=== PATIENT | female | born 1955 | race Caucasian/White ===

== ENCOUNTER 2017-12-20 11:48 | Emergency (ER) | payer BC ==
--- OUTSIDE RECORDS SUMMARY | 2017-12-20 11:57 | XMS REPORT ---
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 Stim Horm) 2.01 mcIU/mL 0.34-5.60 Phosphorus 4.2 mg/dL 2.5-5.0 Comp Metabolic Panel 08/20/2016 Sodium 138 mmol/L 133-145 Potassium 4.4 mmol/L 3.5-5.0 Chloride 105 mmol/L 101-111 Co2 Carbon Dioxide 27 mmol/L 22-32 Anion Gap 6 mmol/L 2-11 Glucose 89 mg/dL 70-100 Blood Urea Nitrogen 21 mg/dL 6-24 Creatinine 0.89 mg/dL 0.51-0.95 BUN/Creatinine Ratio 23.6 High 8-20 Calcium 9.4 mg/dL 8.6-10.3 Total Protein 6.1 g/dL Low 6.4-8.9 Albumin 4.1 g/dL 3.2-5.2 Globulin 2.0 g/dL 2-4 Albumin/Globulin Ratio 2.1 1-3 Total Bilirubin 0.40 mg/dL 0.2-1.0 Alkaline Phosphatase 69 U/L 34-104 Alt 20 U/L 7-52 Ast 15 U/L 13-39 Egfr Non- 65.1 >60 Egfr 83.8 >60 20 Laboratory test 05/22/2016 Surgical Interface SEE RESULT BELOW 21 finding Order Laboratory test 05/11/2016 Rapid Strep Negative Negative 22 finding Molecular CBC Auto Diff 11/15/2015 White Blood Count 5.1 10^3/uL 3.5-10.8 Red Blood Count 4.58 10^6/uL 4.0-5.4 Hemoglobin 13.8 g/dL 12.0-16.0 Hematocrit 43 % 35-47 Mean Corpuscular Volume 93 fL 80-97 Mean Corpuscular Hemoglobin 30 pg 27-31 Mean Corpuscular HGB Conc 33 g/dL 31-36 Red Cell Distribution Width 13 % 10.5-15 Platelet Count 212 10^3/uL 150-450 Mean Platelet Volume 10 um3 7.4-10.4 Abs Neutrophils 2.7 10^3/uL 1.5-7.7 Abs Lymphocytes 1.8 10^3/uL 1.0-4.8 Abs Monocytes 0.4 10^3/uL 0-0.8 Abs Eosinophils 0.2 10^3/uL 0-0.6 Abs Basophils 0 10^3/uL 0-0.2 Abs Nucleated RBC 0 10^3/uL Granulocyte % 53.3 % 38-83 Lymphocyte % 35.5 % 25-47 Monocyte % 6.9 % 1-9 Eosinophil % 3.9 % 0-6 Basophil % 0.4 % 0-2 Nucleated Red Blood Cells % 0 CBC Auto Diff 01/18/2015 White Blood Count 4.7 10^3/uL Low 4.8-10.8 Red Blood Count 4.43 10^6/uL 4.0-5.4 Hemoglobin 13.9 g/dL 12.0-16.0 Hematocrit 42 % 35-47 Mean Corpuscular Volume 94 fL 80-97 Mean Corpuscular Hemoglobin 32 pg High 27-31 Mean Corpuscular HGB Conc 34 g/dL 31-36 Red Cell Distribution Width 13 % 10.5-15 Platelet Count 188 10^3/uL 150-450 Mean Platelet Volume 11 um3 High 7.4-10.4 Abs Neutrophils 2.4 10^3/uL 1.5-7.7 Abs Lymphocytes 1.7 10^3/uL 1.0-4.8 Abs Monocytes 0.3 10^3/uL 0-0.8 Abs Eosinophils 0.2 10^3/uL 0-0.6 Abs Basophils 0 10^3/uL 0-0.2 Abs Nucleated RBC 0 10^3/uL Granulocyte % 52.0 % 38-83 Lymphocyte % 36.5 % 25-47 Monocyte % 7.3 % 1-9 Eosinophil % 3.6 % 0-6 Basophil % 0.6 % 0-2 Nucleated Red Blood Cells % 0 Comp Metabolic Panel 01/18/2015 Sodium 140 mmol/L 133-145 Potassium 4.1 mmol/L 3.5-5.0 Chloride 105 mmol/L 101-111 Co2 Carbon Dioxide 28 mmol/L 22-32 Anion Gap 7 mmol/L 2-11 Glucose 85 mg/dL 70-100 Blood Urea Nitrogen 17 mg/dL 6-24 Creatinine 0.92 mg/dL 0.51-0.95 BUN/Creatinine Ratio 18.5 8-20 Calcium 9.1 mg/dL 8.6-10.3 Total Protein 5.8 g/dL Low 6.4-8.9 Albumin 4.0 g/dL 3.2-5.2 Globulin 1.8 g/dL Low 2-4 Albumin/Globulin Ratio 2.2 1-3 Total Bilirubin 0.50 mg/dL 0.2-1.0 Alkaline Phosphatase 54 U/L 34-104 Alt 16 U/L 7-52 Ast 17 U/L 13-39 Egfr Non- 62.9 >60 Egfr 80.9 >60 23 Lipid Profile (Trig/Chol/HDL) 01/18/2015 Triglycerides 75 mg/dL 24 Cholesterol 172 mg/dL 25 HDL Cholesterol 54.7 mg/dL 26 LDL Cholesterol 102 mg/dL 27 Laboratory test finding 01/18/2015 TSH (Thyroid Stim Horm) 2.05 ?IU/mL 0.34-5.60 Free T4 (Free Thyroxine) 1.02 ng/mL 0.61-1.12 Vitamin D Total 25(Oh) 42.5 ng/mL 30-50 Surgical Pathology 02/02/2014 S RUN DATE: 02/06/ <SEE 28 NOTE> Calcium 24HR Urine 12/30/2013 Urine Random Calcium 17.6 mg/dL Urine Calcium/24HR 299.2 mg/24Hr 50-400 Urine Collection Time 24 Urine Total Volume 1700 mL Protein Electrophoresis 12/30/2013 Total Protein(Pep) 6.2 g/dL 6.3 - 7.9 Albumin 3.2 g/dL 3.4-4.7 Alpha-1 Globulin 0.2 g/dL 0.1-0.3 Alpha-2 Globulin 1.1 g/dL 0.6-1.0 Beta Globulin 0.8 g/dL 0.7-1.2 Gamma Globulin 0.9 g/dL 0.6-1.6 Albumin/Globulin Ratio 1.09 Impression See Comment 29 Phosphorus 24HR Urine 12/30/2013 Urine Random Phosphorus 28.1 mg/dL Urine Phosporus/24HR 477.7 mg/24Hr 400-1300 Laboratory test finding 12/30/2013 Erythrocyte Sed Rate 9 mm/Hr 0-30 Comp Metabolic Panel 12/30/2013 Sodium 142 mmol/L 133-145 Potassium 4.4 mmol/L 3.7-5.6 Chloride 106 mmol/L 101-111 Co2 Carbon Dioxide 24 mmol/L 22-32 Anion Gap 12 mmol/L High 2-11 Glucose 137 mg/dL High 70-100 Blood Urea Nitrogen 15 mg/dL 6-24 Creatinine 0.89 mg/dL 0.51-0.95 BUN/Creatinine Ratio 16.9 8-20 Calcium 8.9 mg/dL 8.6-10.3 Total Protein 6.0 g/dL Low 6.4-8.9 Albumin 4.1 g/dL 3.2-5.2 Globulin 1.9 g/dL Low 2-4 Albumin/Globulin Ratio 2.2 1-3 Total Bilirubin 0.50 mg/dL 0.2-1.0 Alkaline Phosphatase 73 U/L 34-104 Alt 28 U/L 7-52 Ast 21 U/L 13-39 Egfr Non- 65.6 >60 Egfr 84.4 >60 30 Laboratory test finding 12/30/2013 Free T4 0.93 ng/mL 0.61-1.12 31 TSH (Thyroid Stimulating Horm) 1.92 IU/mL 0.34-5.60 32 Cortisol 6.57 g/dL 33 C Reactive Protein < 1.00 mg/L < 5.00 34 Vitamin D, 25 Hydroxy 12/30/2013 25-Hydroxy Vitamin D2 <4.0 ng/mL 25-Hydroxy Vitamin D3 62 ng/mL 25-Hydroxy Vitamin D Total 62 ng/mL 35 Hla B27 12/30/2013 Hla B27 Negative 36 Hla B27 Interp See Comment 37 Laboratory test finding 11/24/2013 Hepatitis C Antibody Nonreactive Nonreactive CBC Auto Diff 06/30/2013 White Blood Count 5.8 10^3/uL 4.8-10.8 Red Blood Count 4.19 10^6/uL 4.0-5.4 Hemoglobin 13.1 g/dL 12.0-16.0 Hematocrit 39 % 35-47 Mean Corpuscular Volume 94 fL 80-97 Mean Corpuscular Hemoglobin 31 pg 27-31 Mean Corpuscular HGB Conc 33 g/dL 31-36 Red Cell Distribution Width 13 % 10.5-15 Platelet Count 217 10^3/uL 150-450 Mean Platelet Volume 10 um3 7.4-10.4 Abs Neutrophils 3.1 10^3/uL 1.5-7.7 Abs Lymphocytes 1.7 10^3/uL 1.0-4.8 Abs Monocytes 0.4 10^3/uL 0-0.8 Abs Eosinophils 0.5 10^3/uL 0-0.6 Abs Basophils 0 10^3/uL 0-0.2 Abs Nucleated RBC 0 10^3/uL Granulocyte % 53.9 % 38-83 Lymphocyte % 29.6 % 25-47 Monocyte % 7.2 % 1-9 Eosinophil % 8.7 % High 0-6 Basophil % 0.6 % 0-2 Nucleated Red Blood Cells % 0 Laboratory test 04/14/2012 Surgical 38, 39 finding Pathology <SEE NOTE> Laboratory test 09/24/2011 Phosphorus 3.8 mg/dL 2.4-4.7 40 finding TSH 1.52 MIU/ML 0.34-5.60 40 Vitamin D,25 Hydroxy 09/24/2011 25-Hydroxy Vitamin D2 <4.0 ng/mL () 40 25-Hydroxy Vitamin D3 40 ng/mL () 40 25-Hydroxy Vitamin D Total 40 ng/mL () 40, 41 CBC W/ Electronic Diff 09/24/2011 White Blood Count 4.3 CUMM Low 4.8-10.8 40 Red Cell Count 4.21 CUMM 4.2-5.4 40 Hemoglobin 13.2 g/dL 12.0-16.0 40 Hematocrit 38 % 35-47 40 Mean Corpuscular Volume 91 um3 79-97 40 Mean Corpuscular Hemoglob 32 pg High 27-31 40 Mean Corpuscular HGB Cone 35 g/dL 32-36 40 Redcell Distribution WDTH 13 % 10.5-15 40 Platelet Count 174 CUMM 150-450 40 Mean Platelet Volume 10.9 um3 High 7.4-10.4 40 Gran % 53.9 % 38-83 40 Lymph % 34.8 % 25-47 40 Mononuclear % 6.8 % 1-9 40 Eosinophil % 3.9 % 0-6 40 Basophil % 0.6 % 0-2 40 Abs Lymphs 1.5 1.0-4.8 40 Abs Mononuclear 0.3 0-0.8 40 Absolute Neutrophil Count 2.3 1.5-7.7 40 Abs Eosinophils 0.2 0-0.6 40 Abs Basophils 0 0-0.2 40 Lipid Panel 09/24/2011 Triglyceride 112 mg/dL 40-200 40 Cholesterol 212 mg/dL High Less Than 200 40, 42 High Density Lipoprotein 64 mg/dL High 40-60 40, 43 Cholesterol/HDL Ratio 3.31 AVERAGE 1-4.44 40 Low Density Lipoprotein 126 mg/dL High Less Than 100 40, 44 CMP Panel 09/24/2011 Sodium 138 mmol/L 135-145 40 Potassium 4.4 mmol/L 3.5-5.0 40 Chloride 102 mmol/L 101-111 40 Co2 (Carbon Dioxide) 30.0 mmol/L 22-32 40 Anion Gap 6.0 mmol/L 2-11 40, 45 Glucose 83 mg/dL 70-100 40 BUN 13 mg/dL 6-24 40 Creatinine 0.9 mg/dL 0.50-1.40 40 One Over Creatinine 1.11 40 BUN/Creatinine Ratio 14.4 8-20 40 Calcium 9.1 mg/dL 8.1-9.9 40 Total Protein 5.9 GM/DL Low 6.2-8.1 40 Albumin 3.9 GM/DL 3.6-5.4 40 Globulin 2.0 GM/DL 2-4 40 Albumin/Globulin Ratio 2.0 1-3 40 Bilirubin Total 0.8 mg/dL 0.4-1.5 40, 46 Alkaline Phosphatase 77 U/L 30-110 40 Alt (SGPT) 27 U/L 14-54 40 Ast (Sgot) 23 U/L 12-42 40 eGFR Non- 65.2 > 60 40 eGFR 83.9 > 60 40, 47 CBC With Electronic Diff 11/29/2007 White Blood Count 4.7 CUMM Low 4.8- 10.8 Abs Basophils 0 0-0.2 Abs Eosinophils 0.2 0-0.6 Absolute Neutrophil Count 2.6 1.5-7.7 Abs Lymphs 1.5 1.0-4.8 Abs Mononuclear 0.3 0-0.8 Basophil % 0.6 % 0-2 Hematocrit 37 % 35-47 Hemoglobin 13.1 g/dL 12.0-16.0 Eosinophil % 4.8 % 0-6 Gran % 55.6 % 38-83 Lymph % 32.4 % 20-45 Mean Corpuscular HGB Cone 35 g/dL 32-36 Mean Corpuscular Hemoglob 32 pg High 27-31 Mean Corpuscular Volume 90 um3 79-97 Mean Platelet Volume 10.6 um3 High 7.4-10.4 Mononuclear % 6.6 % 1-9 Platelet Count 196 CUMM 150-450 Red Cell Count 4.17 CUMM Low 4.2-5.4 Redcell Distribution WDTH 12 % 10.5-15 Liver Function Panel 11/29/2007 Albumin/Globulin Ratio 1.6 1-3 Albumin 3.7 GM/DL 3.6-5.4 Alkaline Phosphatase 56 U/L 30-110 Alt (SGPT) 49 U/L 14-54 Ast (Sgot) 27 U/L 12-42 Bilirubin Direct 0.1 mg/dL 0.1-0.5 Globulin 2.3 GM/DL 2-4 Indirect Bilirubin 0.5 mg/dL 0.1-0.75 Bilirubin Total 0.6 mg/dL 0.4-1.5 Total Protein 6.0 GM/DL Low 6.2-8.1 Laboratory test 10/07/2007 Carbamazepine 4.5 g/mL 4-12 48 finding (Tegretol) Laboratory test 06/20/2007 C Reactive Protein < 0.5 mg/dL Less Than 0.5 finding CBC With Electronic 06/20/2007 White Blood Count 7.1 CUMM 4.8-10.8 Diff Abs Basophils 0 0-0.2 Abs Eosinophils 0.4 0-0.6 Absolute Neutrophil Count 4.1 1.5-7.7 Abs Lymphs 2.1 1.0-4.8 Abs Mononuclear 0.4 0-0.8 Basophil % 0.7 % 0-2 Hematocrit 41 % 35-47 Hemoglobin 13.9 g/dL 12.0-16.0 Eosinophil % 6.0 % 0-6 Gran % 57.8 % 38-83 Lymph % 29.5 % 20-45 Mean Corpuscular HGB Cone 34 g/dL 32-36 Mean Corpuscular Hemoglob 31 pg 27-31 Mean Corpuscular Volume 91 um3 79-97 Mean Platelet Volume 11.1 um3 High 7.4-10.4 Mononuclear % 6.0 % 1-9 Platelet Count 238 CUMM 150-450 Red Cell Count 4.46 CUMM 4.2-5.4 Redcell Distribution WDTH 13 % 10.5-15 Laboratory test finding 06/20/2007 Erythrocyte Sed Rate 1 MM/HR 0-15 Urinalysis 06/20/2007 Ua Color YELLOW Appearance-Urine CLEAR Bilirubin-Ur NEGATIVE Negative Blood-Urine NEGATIVE Negative Esterase-Urine NEGATIVE Negative Glucose-Urine NEGATIVE Negative Ketones-Urine NEGATIVE Negative Nitrite NEGATIVE Negative PH-Urine 5.0 5-9 Protein-Urine NEGATIVE Negative [id number] NEGATIVE Negative Specific Nelson-Ur 1.007 Low 1.010-1.030 Laboratory test finding 06/20/2007 Antinuclear AB NEGATIVE Negative Neutrophil Cytoplasmic AB 06/20/2007 C-Anca NEGATIVE P-Anca Final RPT NEGATIVE Ssa/SSB 06/20/2007 Ssa NEGATIVE Negative SSB NEGATIVE Negative CBC With Manual Diff 06/06/2007 White Blood Count 5.6 CUMM 4.8-10.8 Absolute Neutrophil Count 3.1 Atypical Lymph 8 % High 0-6 Anisocytosis SLIGHT Basophil 2 % 0-2 Hematocrit 41 % 35-47 Hemoglobin 13.7 g/dL 12.0-16.0 Eosenophil 7 % High 0-6 Lymphocyte 20 % 5-47 Mean Corpuscular HGB Cone 34 g/dL 32-36 Mean Corpuscular Hemoglob 31 pg 27-31 Mean Corpuscular Volume 92 um3 79-97 Monocyte 6 % 0-13 Mean Platelet Volume 11.1 um3 High 7.4-10.4 Platelet Count 234 CUMM 150-450 Polychromasia SLIGHT Polysegmented Neutrophil 57 % 38-83 Red Cell Count 4.44 CUMM 4.2-5.4 Redcell Distribution WDTH 13 % 10.5-15 Laboratory test finding 04/21/2006 Tahirnader Ramos RECEIVED 49, 50 Laboratory test finding 12/21/2005 Erythrocyte Sed Rate 1 MM/HR 0-15 51 Rheumatoid Factor < 20.0 IU/mL Less Than 20 51 Mervat (Antinuclear Antibodies) 12/21/2005 Antinuclear AB 1:80 51 Antinuclear AB POSITIVE Negative 51 Mervat Pattern HOMOGENEOUS 51 Comp Metabolic Panel 12/21/2005 One Over Creatinine 1.11 51 Anion Gap 8.0 mmol/L 2-11 51, 52 Albumin/Globulin Ratio 1.5 1-3 51 Albumin 3.7 GM/DL 3.6-5.4 51 Alkaline Phosphatase 44 U/L 30-110 51 Alt (SGPT) 29 U/L 14-54 51 Ast (Sgot) 23 U/L 12-42 51 BUN 12 mg/dL 6-24 51 Calcium 9.0 mg/dL 8.7-10.2 51 Chloride 107 mmol/L 101-111 51 Co2 (Carbon Dioxide) 25.0 mmol/L 22-32 51 Globulin 2.4 GM/DL 2-4 51 Glucose 83 mg/dL 70-105 51 Potassium 4.6 mmol/L 3.5-5.0 51 Sodium 140 mmol/L 135-145 51 Bilirubin Total 0.8 mg/dL 0.4-1.5 51 Total Protein 6.1 GM/DL Low 6.2-8.1 51 BUN/Creatinine Ratio 13.3 8-20 51 Creatinine 0.9 mg/dL 0.5-1.4 51 CBC With Electronic Diff 12/21/2005 White Blood Count 6.3 CUMM 4.8-10.8 51 Abs Basophils 0 0-0.2 51 Abs Eosinophils 0.3 0-0.6 51 Absolute Neutrophil Count 3.6 1.5-7.7 51 Abs Lymphs 1.9 1.0-4.8 51 Abs Mononuclear 0.5 0-0.8 51 Basophil % 0.6 % 0-2 51 Hematocrit 42 % 35-47 51 Hemoglobin 14.4 g/dL 12.0-16.0 51 Eosinophil % 4.2 % 0-6 51 Gran % 57.3 % 38-83 51 Lymph % 30.5 % 20-45 51 Mean Corpuscular HGB Cone 35 g/dL 32-36 51 Mean Corpuscular Hemoglob 30 pg 27-31 51 Mean Corpuscular Volume 88 um3 79-97 51 Mean Platelet Volume 11.3 um3 High 7.4-10.4 51 Mononuclear % 7.4 % 1-9 51 Platelet Count 247 CUMM 150-450 51 Red Cell Count 4.77 CUMM 4.2-5.4 51 Redcell Distribution WDTH 13 % 10.5-15 51 Ua Inhouse 09/12/2004 Ua Glucose NEG Ua Bilirubin NEG Ua Ketones NEG Ua Specific Nelson 1.010 Ua Blood NEG Ua PH 5.0 Ua Protein NEG Ua Urobilinogen NEG Ua Nitrite NEG Ua Leukocytes NEG CBC With Electronic Diff 07/11/2004 White Blood Count 4.9 CUMM 4.8-10.8 Abs Basophils 0 0-0.2 Abs Eosinophils 0.2 0-0.6 Abs Grans 2.5 1.5-7.7 Abs Lymphs 1.8 1.0-4.8 Abs Mononuclear 0.4 0-0.8 Basophil % 0.8 % 0-2 Hematocrit 39 % 35-47 Hemoglobin 13.4 g/dL 12.0-16.0 Eosinophil % 5.0 % 0-6 Gran % 50.7 % 38-83 Lymph % 36.3 % 20-45 Mean Corpuscular HGB Cone 34 g/dL 32-36 Mean Corpuscular Hemoglob 31 pg 27-31 Mean Corpuscular Volume 92 um3 79-97 Mean Platelet Volume 10.7 um3 High 7.4-10.4 Mononuclear % 7.2 % 1-9 Platelet Count 203 CUMM 150-450 Red Cell Count 4.26 CUMM 4.2-5.4 Redcell Distribution WDTH 12 % 10.5-15 Comp Metabolic Panel 07/11/2004 Anion Gap 3.0 mmol/L 2-11 53 Albumin/Globulin Ratio 1.6 1-3 Albumin 3.4 GM/DL Low 3.6-5.4 Alkaline Phosphatase 60 U/L 30-110 Alt (SGPT) 36 U/L 14-54 Ast (Sgot) 27 U/L 12-42 BUN 11 mg/dL 6-24 Calcium 9.0 mg/dL 8.7-10.2 Chloride 108 mmol/L 101-111 Co2 (Carbon Dioxide) 28.0 mmol/L 22-32 Creatinine 0.9 mg/dL 0.5-1.4 Globulin 2.1 GM/DL 2-4 Glucose 85 mg/dL 70-105 Potassium 4.6 mmol/L 3.5-5.0 Sodium 139 mmol/L 135-145 Bilirubin Total 0.6 mg/dL 0.4-1.5 Total Protein 5.5 GM/DL Low 6.2-8.1 BUN/Creatinine Ratio 12.2 8-20 Laboratory test finding 07/11/2004 TSH 1.44 MIU/ML 0.34-5.60 Lipid Profile (Trig/Chol/HDL) 07/11/2004 Cholesterol 194 mg/dL Less Than 200 54 Triglyceride 77 mg/dL 40-200 High Density Lipoprotein 52 mg/dL 40-60 Low Density Lipoprotein 127 mg/dL High Less Than 100 55 Cholesterol/HDL Ratio 3.73 AVERAGE 1-4.44 1 Because ethnic data is not always readily available, this report includes an eGFR for both -Americans and non- Americans. The National Kidney Disease Education Program (NKDEP) does not endorse the use of the MDRD equation for patients that are not between the ages of 18 and 70, are , have extremes of body size, muscle mass, or nutritional status, or are non- or non-. According to the National Kidney Foundation, irrespective of diagnosis, the stage of the disease is based on the level of kidney function: Stage Description GFR(mL/min/1.73 m(2)) 1 Kidney damage with normal or decreased GFR 90 2 Kidney damage with mild decrease in GFR 60-89 3 Moderate decrease in GFR 30-59 4 Severe decrease in GFR 15-29 5 Kidney failure <15 (or dialysis) 2 REFERENCE VALUE <=1.0 (Negative) 3 REFERENCE VALUE <20.0 (Negative) 4 Tests for antibodies to dsDNA and LIAN antigens are not performed automatically unless the MERVAT result is > or= 3.0 U. Studies performed at [facility] indicate that positive MERVAT results <3.0 U are rarely accompanied by positive second order tests. Test Performed by: [address] [address] 5 Acute inflammation: >10.00 6 ADDITIONAL INFORMATION This test was developed and its performance characteristics determined by [facility] in a manner consistent with CLIA requirements. This test has not been cleared or approved by the U.S. Food and Drug Administration. 7 ADDITIONAL INFORMATION This test was developed and its performance characteristics determined by [facility] in a manner consistent with CLIA requirements. This test has not been cleared or approved by the U.S. Food and Drug Administration. 8 ADDITIONAL INFORMATION This test was developed and its performance characteristics determined by [facility] in a manner consistent with CLIA requirements. This test has not been cleared or approved by the U.S. Food and Drug Administration. Test Performed by: [facility] [address] [place] [address] 9 No bands detected 10 No bands detected 11 Specific serologic response to B. burgdorferi infection is not detected, but cannot rule out early infection during which low or undetectable antibody levels to B. burgdorferi may be present. If clinically indicated, a new serum specimen should be submitted in 7-14 days. ADDITIONAL INFORMATION CDC criteria require >=5 bands for IgG or >=2 bands for IgM for the Immunoblot to be considered positive. Bands (e.g.,p41) may be detected in patients without Lyme disease, and patterns not meeting the CDC criteria should be interpreted with caution. Immunoblot should be ordered only on specimens that are positive or equivocal by a FDA-licensed Lyme disease antibody screening test (e.g., EIA). Test Performed by: [facility] - [facility] [address] [place] [address] 12 ADDITIONAL INFORMATION This test was developed and its performance characteristics determined by [facility] in a manner consistent with CLIA requirements. This test has not been cleared or approved by the U.S. Food and Drug Administration. Test Performed by: [facility] - [facility] [address] [place] [address] 13 ADDITIONAL INFORMATION Testing performed by [facility]. This test was developed and its performance characteristics determined by [facility] in a manner consistent with CLIA requirements. This test has not been cleared or approved by the U.S. Food and Drug Administration. 14 ADDITIONAL INFORMATION Testing performed by Liquid Chromatography-Tandem Mass Spectrometry (LC-MS/MS). This test was developed and its performance characteristics determined by [facility] in a manner consistent with CLIA requirements. This test has not been cleared or approved by the U.S. Food and Drug Administration. Test Performed by: [facility] - [address] [address] 15 REFERENCE VALUE 18-144 (non-) Test Performed by: [address] [address] 16 Test Performed by: [address] [address] 17 ADDITIONAL INFORMATION This test was developed and its performance characteristics determined by [facility] in a manner consistent with CLIA requirements. This test has not been cleared or approved by the U.S. Food and Drug Administration. Test Performed by: [facility] - [address] [address] 18 <1:80 (Negative) REFERENCE VALUE <1:80 (Negative) Test Performed by: [address] [address] 19 Because ethnic data is not always readily available, this report includes an eGFR for both -Americans and non- Americans. The National Kidney Disease Education Program (NKDEP) does not endorse the use of the MDRD equation for patients that are not between the ages of 18 and 70, are , have extremes of body size, muscle mass, or nutritional status, or are non- or non-. According to the National Kidney Foundation, irrespective of diagnosis, the stage of the disease is based on the level of kidney function: Stage Description GFR(mL/min/1.73 m(2)) 1 Kidney damage with normal or decreased GFR 90 2 Kidney damage with mild decrease in GFR 60-89 3 Moderate decrease in GFR 30-59 4 Severe decrease in GFR 15-29 5 Kidney failure <15 (or dialysis) 20 Because ethnic data is not always readily available, this report includes an eGFR for both -Americans and non- Americans. The National Kidney Disease Education Program (NKDEP) does not endorse the use of the MDRD equation for patients that are not between the ages of 18 and 70, are , have extremes of body size, muscle mass, or nutritional status, or are non- or non-. According to the National Kidney Foundation, irrespective of diagnosis, the stage of the disease is based on the level of kidney function: Stage Description GFR(mL/min/1.73 m(2)) 1 Kidney damage with normal or decreased GFR 90 2 Kidney damage with mild decrease in GFR 60-89 3 Moderate decrease in GFR 30-59 4 Severe decrease in GFR 15-29 5 Kidney failure <15 (or dialysis) 21 SEE RESULT BELOW Name: ROSALINDA HIGGINBOTHAM : [address]: Scott Carvalho MD Acct: [id number] Unit: [id number] AGE: 60 Location: ENDO Re05/22/16 SEX: F Status: REG REF SPEC: [id number] DANIEL: 05/22/16- SUBM DR: Scott Carvalho MD REQ: [id number] RECD: 05/22/16-1251 STATUS: KATHRIN CORONEL DR: Chris King MD _ ORDERED: LEVEL IV FINAL DIAGNOSIS Colon, right, biopsy: -- Lymphocytic colitis. CLINICAL HISTORY Microscopic colitis POST-OPERATIVE DIAGNOSIS Colonoscopy into terminal ileum, prep fair - normal, no polyp; biopsies obtained from tight colon to follow microscopic colitis. Conclusions/Plan: Normal colonoscopy GROSS DESCRIPTION The specimen is received in formalin labeled, Right Colon Biopsies, and consists of two power-pink irregular soft tissue fragments averaging 0.3 x 0.3 x 0.2 cm, which are submitted entirely in one cassette. Signed (signature on file) Clari Pablo MD 11/05 1506 END OF REPORT * ML=Testing performed at Main Lab DEPARTMENT OF PATHOLOGY, [address] [place] [address] Aj Sandy M.D. Director [facility] # [id number] Mechanical Design Engineer Facilities: [id number] [address] 23 Because ethnic data is not always readily available, this report includes an eGFR for both -Americans and non- Americans. The National Kidney Disease Education Program (NKDEP) does not endorse the use of the MDRD equation for patients that are not between the ages of 18 and 70, are , have extremes of body size, muscle mass, or nutritional status, or are non- or non-. According to the National Kidney Foundation, irrespective of diagnosis, the stage of the disease is based on the level of kidney function: Stage Description GFR(mL/min/1.73 m(2)) 1 Kidney damage with normal or decreased GFR 90 2 Kidney damage with mild decrease in GFR 60-89 3 Moderate decrease in GFR 30-59 4 Severe decrease in GFR 15-29 5 Kidney failure <15 (or dialysis) 24 Desirable <150 Borderline high 150-199 High 200-499 Very High >500 25 Desirable <200 Borderline high 200-239 High >239 26 Low <40 Desirable: 40-60 High: >60 27 Desirable: <100 mg/dL Near Optimal: 100-129 mg/dL Borderline High: 130-159 mg/dL High: 160-189 mg/dL Very High: >189 mg/dL 28 RUN DATE: 02/06/14 [facility] LAB LIVE PAGE 1 RUN TIME: [address] [place], [place] [address] Specimen Inquiry Name: ROSALINDA HIGGINBOTHAM : [address]: Neto Lord MD Acct: [id number] Unit: [id number] AGE: 58 Location: [facility] Re02/02/14 SEX: F Status: REG REF SPEC: [id number] DANIEL: 02/02/14- [facility] DR: Neto Lord MD REQ: [id number] RECD: 02/02/14-1640 STATUS: KATHRIN CORONEL DR: Sunita King MD _ ORDERED: LEVEL IV FINAL DIAGNOSIS Skin, right upper lateral cutaneous lip, excision: Benign, predominantly intradermal melanocytic nevus, congenital pattern. CLINICAL HISTORY Irritating papule, recent bleeding GROSS DESCRIPTION The specimen is received in formalin labeled Rosalinda Higginbotham, Excision Skin Lesion Right Upper Lateral Cutaneous Lip, and consists of a 0.9 x 0.4 cm. power-white, unoriented skin ellipse excised to a maximum depth of 0.3 cm. There is a central 0.3 x 0.3 x 0.1 cm. power-brown macule. The specimen is inked, trisected, and submitted entirely, one cassette. Signed (signature on file) Aj Sandy MD 1629 END OF REPORT * ML=Testing performed at Main Lab DEPARTMENT OF PATHOLOGY, [address] [place] [address] Aj Sandy M.D. Director [facility] # [id number] RESULT: No apparent monoclonal protein on serum electrophoresis. Test Performed by: [place] [address] [employer]eral Home Director: Brandon Betancur III, M.D. 30 Because ethnic data is not always readily available, this report includes an eGFR for both -Americans and non- Americans. The National Kidney Disease Education Program (NKDEP) does not endorse the use of the MDRD equation for patients that are not between the ages of 18 and 70, are , have extremes of body size, muscle mass, or nutritional status, or are non- or non-. According to the National Kidney Foundation, irrespective of diagnosis, the stage of the disease is based on the level of kidney function: Stage Description GFR(mL/min/1.73 m(2)) 1 Kidney damage with normal or decreased GFR 90 2 Kidney damage with mild decrease in GFR 60-89 3 Moderate decrease in GFR 30-59 4 Severe decrease in GFR 15-29 5 Kidney failure <15 (or dialysis) 31 Collected from 12/29/13 0745AM through 12/30/13 0745AM 32 Collected from 12/29/13 0745AM through 12/30/13 0745AM 33 AM 8.7-22.4 PM <10 34 Acute inflammation: >10.00 35 Interpretation: 51-80 ng/mL (increased risk of hypercalciuria) -- REFERENCE VALUE -- 25-HYDROXY D TOTAL (D2+D3) Optimum levels in the healthy population are 20-50, patients with bone disease may benefit from higher levels within this range. Test Performed by: [place] [address] [facility] Director: Brandon Betancur III, M.D. 36 -- REFERENCE VALUE -- Not Applicable 37 RESULT: HLA-B27 antigen was not detected. Method: Flow Cytometry Performing Laboratory CLIA# [id number] Test Performed by: [place] [address] [facility] [facility] Director: Brandon Betancur III, M.D. 38 benign 39 ---- RUN DATE: 04/18/12 [facility] NMI LIVE PAGE 1 RUN TIME: 1333 Specimen Inquiry RUN USER: INTERFACE -- Name: ROSALINDA HIGGINBOTHAM Status: REG REF Re04/14/12 Age/Sex: 56/F Unit#: [id number] Location: [facility]. : 59 -- Specimen: [id number] SOUT Spec Date:04/14/[address]: Chris portillo MD Spec Type: SURGICAL P Received:04/14/12-3450 Copies to: SPECIMEN 1) 8 MM. SKIN TAG FROM RIGHT LOWER AXILLA 2) 3 MM. SKIN TAG FROM RIGHT UPPER AXILLA HISTORY PRE-OP DIAGNOSIS: Skin tag. CLINICAL INFORMATION: Present for a long time, occasionally irritated wit h razor. GROSS DESCRIPTION 1) The specimen is received in formalin labelled Rosalinda Higginbotham, Right Axilla, and consists of one fragment of hu-white tissue measuring 0.8 x 0.5 x 0.5 cm. Submitted entirely, one cassette labelled 1. 2) The specimen is received in formalin labelled Rosalinda Higginbotham, Right Axilla, Upper, and consists of one fragment of hu tissue measuring 0.2 x 0.2 x 0.1 cm. Submitted entirely, one cassette labelled 2. DIAGNOSIS 1) Skin, right lower axilla, excision: Benign, predominantly intradermal melanocytic nevus, neurotized. 2) Skin, right upper axilla, excision: Acrochordon. Signed Electronically by: AJ SANDY MD 04/18/12 1331 -- -- DEPARTMENT OF PATHOLOGY, [address] [place] [address] [facility] Permit #[id number] Aj Sandy M.D. Director Crys Scott M.D. Percussion Instrument Tuner Dir shyla -- [address] GABBI GRESHAM AT FAX NUMBER [phone] -- REFERENCE VALUE -- 25-HYDROXY D TOTAL (D2+D3) Optimum levels in the normal population are 25-80 Test Performed by: [facility] Pathology [address] [place] [id number] [employer] Home Director: Brandon Betancur III, M.D. 42 CHOLESTEROL INTERPRETATION: Desirable: Less than 200 MG/DL Borderline-High Risk: 200-239 MG/DL High-Risk: 240 MG/DL and over 43 HDL INTERPRETATION: Undesirable: High Risk: Less than 40 MG/DL Desirable: Low Risk: Greater than 60 MG/DL 44 LDL INTERPRETATION: Low Risk Optimal Level: LDL Less than 100 MG/DL Near or Above Optimal: LDL 100-129 MG/DL Borderline High Risk: LDL 130-159 MG/DL High Risk: LDL 160-189 MG/DL Very High Risk: LDL Greater than 189 MG/DL 45 Anion gap measurement may be of limited value in the presence of any alkalosis, especially in a combined acid base disorder. . 46 A metabolite of Naproxen, O-desmethylnaproxen, has been shown to interfere with the Jendrassik-[place] method for measuring total bilirubin. Samples from patients who have taken Naproxen have shown spurious elevation in total bilirubin levels. 47 Because ethnic data is not always readily available, this report includes an eGFR for both -Americans and non- Americans. The National Kidney Disease Education Program (NKDEP) does not endorse the use of the MDRD equation for patients that are not between the ages of 18 and 70, are , have extremes of body size, muscle mass, or nutritional status, or are non- or non-. According to the National Kidney Foundation, irrespective of diagnosis, the stage of the disease is based on the level of kidney function: Stage Description GFR(mL/min/1.73 m(2)) 1 Kidney damage with normal or decreased GFR 90 2 Kidney damage with mild decrease in GFR 60-89 3 Moderate decrease in GFR 30-59 4 Severe decrease in GFR 15-29 5 Kidney failure <15 (or dialysis) 48 The detection limit for CARBAMAZEPINE is 2.0 mcg/ml . Values less than 2.0 mcg/ml cannot be accurately measured. . 49 ALSO TEST FOR SPINACH. 50 TEST RESULT RETURNED FROM REFERENCE LABORATORY; SEE SEPARATE REPORT. 51 NON FASTING 52 Anion gap measurement may be of limited value in the presence of any alkalosis, especially in a combined acid base disorder. . 53 Anion gap measurement may be of limited value in the presence of any alkalosis, especially in a combined acid base disorder. . 54 Classification: Desirable . 55 CALCULATED LDL APPROXIMATES THE VALUE OF A DIRECT LDL MEASUREMENT. Classification: Near or above optimal . Procedures Date CPT Code Description Status Comment 11/26/2017 82927 Omt 7-8 Body Regions Completed 05/23/2016 Colonoscopy Completed 2016:normal, fu 10yrs; microscopic colitis only - repeat in 8731-4520 elevated colon cancer risk by genetic testing 2015 - CHEK 2 gene pos 04/23/2016 07538 Omt 7-8 Body Regions Completed 05/31/2015 49581 Omt 7-8 Body Regions Completed 04/25/2015 72837 Omt 7-8 Body Regions Completed 10/05/2014 85419 Omt 7-8 Body Regions Completed 07/06/2014 01849 Omt 7-8 Body Regions Completed 06/29/2014 01640 Omt 7-8 Body Regions Completed 04/20/2014 27389 Omt 7-8 Body Regions Completed 02/09/2014 97853 Omt 7-8 Body Regions Completed 04/14/2012 66673 Remove Skin Tags Up To 15 Completed 08/25/2007 73934 Omt 3 To 4 Body Regions Completed Involved 07/21/2007 62755 Omt 3 To 4 Body Regions Completed Involved 07/01/2007 16293 Omt 3 To 4 Body Regions Completed Involved 05/11/2007 32207 Omt 3 To 4 Body Regions Completed Involved 04/30/2007 53842 Omt 3 To 4 Body Regions Completed Involved 04/21/2007 45853 Omt 3 To 4 Body Regions Completed Involved 09/23/2005 55725 Inhalation Therapy Completed 09/23/2005 07254 X-Ray Chest Two Views Completed 07/09/2004 88762 Electrocardiogram Complete Completed 08/30/2003 19980 X-Ray Chest Two Views Completed Encounters Type Date Location Provider CPT E/M Dx Office Visit 11/26/2017 12:55p Main Office Imer Ovalle D.O. 20883 R53.83 G43.009 L63.8 L71.8 M99.05 M99.08 M99.02 M99.03 M99.01 M99.04 M99.00 Z23 Z41.8 Office Visit 05/28/2017 9:45a Main Office Imer Ovalle D.O. 71263 R53.83 G43.009 L63.8 M25.561 L71.8 Z23 Office Visit 01/15/2017 4:45p Main Office Imer Ovalle D.O. 86974 Z00.00 Office Visit 12/04/2016 9:05a Main Office Chris King M.D. 72941 L65.9 G43.009 L60.3 Z71.89 T42.2x5A Office Visit 08/20/2016 1:30p Main Office Chris King M.D. 89785 M81.8 Z71.89 Z23 Z41.8 Z79.899 Office Visit 06/12/2016 9:05a Main Office Chris King M.D. 46603 Z23 G43.109 Z41.8 Office Visit 04/23/2016 4:45p Main Office Imer Ovalle D.O. 64734 G43.109 M54.5 M54.2 M99.00 M99.02 M99.01 M99.03 M99.04 M99.05 M99.08 Office Visit 12/20/2015 11:15a Main Office Chris King M.D. 39248 H73.011 G43.109 Office Visit 11/14/2015 3:15p Main Office Chris King M.D. 28962 H73.011 J06.9 Office Visit 08/19/2015 3:45p Main Office Antony King M.D. 52486 K21.9 Office Visit 06/22/2015 9:30a Main Office Chris King M.D. 85598 D17.30 G43.109 Z71.89 Office Visit 05/31/2015 2:00p Main Office Imer Ovalle D.O. 39736 M54.2 M79.1 M54.5 M99.00 M99.02 M99.01 M99.03 M99.04 M99.05 M99.08 Z23 Z41.8 Office Visit 04/25/2015 11:00a Main Office Imer Ovalle D.O. 57950 346.00 729.1 723.1 724.2 739.0 739.2 739.1 739.3 739.4 739.5 739.8 719.45 Office Visit 02/01/2015 12:55p Main Office Chris King M.D. 74840 346.00 995.3 555.1 Office Visit 12/14/2014 3:45p Main Office Chris King M.D. 63725 555.1 346.00 Office Visit 10/05/2014 3:30p Main Office Imer Ovalle D.O. 61702 724.2 729.1 723.1 739.0 739.2 739.1 739.3 739.4 739.5 739.8 Office Visit 07/06/2014 12:55p Main Office Imer Ovalle D.O. 27292 729.1 346.00 719.45 739.0 739.1 739.2 739.3 739.4 739.5 739.8 Office Visit 06/29/2014 9:45a Main Office Imer Ovalle D.O. 45799 346.00 729.1 723.1 739.0 739.1 739.2 739.3 739.4 739.5 739.8 V04.81 V07.2 Office Visit 06/08/2014 10:00a Main Office Chris King M.D. 27109 733.90 555.1 346.00 V65.49 Office Visit 05/07/2014 4:30p Main Office Chris King M.D. 72203 729.5 Office Visit 04/20/2014 9:45a Main Office Imer Ovalle D.O. 23042 724.2 729.1 723.1 784.92 739.0 739.3 739.1 739.5 739.8 739.4 739.2 Office Visit 03/01/2014 3:30p Main Office Imer Ovalle D.O. 91567 724.2 729.1 465.9 Office Visit 02/09/2014 10:00a Main Office Imer Ovalle D.O. 84028 784.92 723.1 739.0 739.1 739.3 739.5 739.8 739.4 739.2 729.1 Office Visit 02/03/2014 9:00a Main Office Antony King M.D. 70458 724.2 728.85 Office Visit 11/24/2013 10:15a Main Office Chris King M.D. 30163 V65.49 555.1 346.00 477.8 Office Visit 06/30/2013 3:15p Main Office Chris King M.D. 36587 216.9 Office Visit 05/19/2013 10:45a Main Office Chris King M.D. 58830 695.3 555.1 346.00 424.0 733.90 477.8 V76.51 V70.0 780.79 v04.81 v07.2 Office Visit 05/03/2013 8:55a Main Office Antony King M.D. 19358 461.0 461.1 Office Visit 10/03/2012 8:55a Main Office Chris King M.D. 20426 784.7 466.0 465.0 555.1 346.00 424.0 Office Visit 06/14/2012 4:00p Main Office Chris King M.D. 62502 681.11 Office Visit 06/10/2012 4:15p Main Office Chris King M.D. 79342 681.11 Office Visit 04/14/2012 8:55a Main Office Chris King M.D. 19300 701.9 216.8 959.8 Office Visit 03/31/2012 4:00p Main Office Crhis King M.D. 86142 701.9 555.1 596.9 783.1 Office Visit 09/24/2011 8:55a Main Office Chris King M.D. 84765 733.90 555.1 V77.91 V70.0 216.9 695.3 Office Visit 07/27/2011 2:30p Main Office Chris King M.D. 11300 733.90 V04.81 V07.2 Office Visit 08/25/2007 2:00p Main Office klepack 67274 729.2 723.1 739.1 739.8 739.0 719.41 Office Visit 07/21/2007 11:10a Main Office klepack 31313 729.2 723.1 739.1 739.8 739.0 739.2 785.6 Office Visit 07/01/2007 10:30a Main Office klepack 42608 729.2 719.41 739.1 739.8 739.0 739.2 Office Visit 06/06/2007 8:30a Main Office klepack 46515 729.5 719.41 785.6 V76.10 Office Visit 05/11/2007 4:40p Main Office klepack 87944 473.0 739.1 739.8 739.0 739.2 719.49 795.79 Office Visit 04/30/2007 11:30a Main Office klepack 43459 473.0 739.1 739.0 739.8 739.2 Office Visit 04/21/2007 2:00p Main Office klepack 52454 473.0 739.1 739.0 739.8 739.2 719.41 Office Visit 09/06/2006 3:00p Main Office klepack 30094 473.0 Office Visit 03/17/2006 4:30p Main Office klepack 47772 782.0 Office Visit 12/21/2005 9:30a Main Office klepack 28274 719.44 Office Visit 09/23/2005 2:30p Main Office klepack 56185 786.2 Office Visit 09/19/2005 11:15a Main Office klepack 95411 786.2 372.00 Office Visit 09/12/2004 3:00p Main Office klepack 58710 788.69 Office Visit 08/25/2004 9:30a Main Office klepack 00030 785.2 Office Visit 07/09/2004 9:40a Main Office Gloria Rodriguez, N.P. 34618 611.8 995.3 784.0 785.2 427.9 788.41 V70.0 Office Visit 03/27/2004 1:00p Main Office Gloria Rodriguez, N.P. 23661 599.0 Office Visit 09/13/2003 10:45a Main Office Chris King M.D. 00270 477.9 784.7 Office Visit 08/30/2003 2:20p Main Office Gloria Rodriguez, N.P. 30609 477.9 787.2 Plan of Care Future Appointment(s):03/11/2018 1:30 pm - Nurse's Schedule at Main Xmbxvn2203/11 12:55 pm - Imer Ovalle D.O. at Main Wgzlso4211/26/2017 - Imer Ovalle D.O.R53.83 Other fatigueFollow up:3 months recheck fatigue/migraines/rosacea and OMMEG43.009 Migraine w/o aura, not intractable, w/o status sguvqorhvtcH92.8 Other alopecia sdyopyQ73.8 Other vfmwyodU12.05 Segmental and somatic dysfunction of pelvic agmygnA01.08 Segmental and somatic dysfunction of rib cageM99.02 Segmental and somatic dysfunction of thoracic quxmywA95.03 Segmental and somatic dysfunction of lumbar zrprmvA48.01 Segmental and somatic dysfunction of cervical aeqgxeY02.04 Segmental and somatic dysfunction of sacral awaodqA38.00 Segmental and somatic dysfunction of head nyaognC65 Encounter for gqgbcvhvbclmV47.8 Encntr for oth proc for purpose oth than [facility]
--- OUTSIDE RECORDS SUMMARY | 2017-12-20 11:58 | XMS REPORT ---
:1955 External Reference #:[id number] Author Organization [facility] Address [address] [address] Phone [phone] Care Team Providers Name Role Phone Imer Ovalle DO Primary Care Physician Unavailable Payers Type Date Identification Numbers Payment Provider Subscriber Commercial Effective: Policy Number: BS Facets Chris Olmos 2013 [id number] PayID: [id number] [address] Problems Date Description Provider Status Onset: 12/04/2013 Refractory migraine Carol Ann M.D. Active Onset: 12/27/2013 Senile osteoporosis Oral Vargas M.D. Active Onset: 12/27/2013 Colitis, enteritis and gastroenteritis Oral Vargas M.D. Active presumed infectious Onset: 02/15/2014 Taking medication Oral Vargas M.D. Active Onset: 12/23/2016 Trigeminal neuralgia Carol Ann M.D. Active Family History Date Family Member(s) Problem(s) Comments General Diabetes General Cancer Father Nightmares, night terrors, possibly PTSD related Father Diabetes Father Pancreatic Cancer Father Emphysema Mother Breast Cancer Siblings 3 sisters. 2 overweight. 2 with sleep apnea. 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 Sensitive to smoke Daily Caffeine Consumes on average 1 cup of 1-2 hot tea per day Exercise Type/Frequency Exercises sporadically Exercise Type/Frequency Walks sporadically Flood car away from work, runs up and down stairs Allergies, Adverse Reactions, Alerts Date Description Reaction Status Severity Comments 05/12/2012 Penicillin rash active rash 05/12/2012 Epinephrine vomitting and diarrhea active vomiting diarrhea 05/12/2012 Quinolones tendonitis active tendonitis 12/13/2015 Red Dye Severe Headache active Severe headaches 05/12/2017 Minocycline active rash Medications Medication Date Status Form Strength Qnty SIG Indications Ordering Provider Topiramate 09/02/ Active Tablets 25mg 270ta 2 tabs by G43.919 Kareen 2015 bs mouth every MD Sharron Verapamil HCL 09/10/ Active Caps ER 180mg 90cap one tab by Carol ER 2014 24HR s mouth every Cowdery, night at M.D. bedtime Naratriptan HCL 08/10/ Active Tablets 2.5mg 18tab take 1 by Carol 2011 s mouth as Cowdery, needed M.D. migraine, may repeat after 2 hours. use on no more than 2 days a week. Ondansetron HCL 12/31/ Active Tablets 4mg 60tab 1 to 2 tabs Carol 2011 s by mouth Cowdery, every 8 hours M.D. as needed for nausea Desipramine HCL / Active Tablets 50mg 1 tab po qd Unknown 0000 Questran / Active 4mg 1 packet Unknown 0000 daily Acetaminophen / Active Capsules 500mg 100ca 1 tablets 3 Unknown 0000 ps to 4 times daily as needed Estrace / Active Cream 0.1mg/GM 42.50 1 application Unknown 0000 0gm two times weekly Metrogel / Active Gel 0.75% 60uni apply qpm prn Unknown 0000 ts Coq-10 / Active Capsules 100mg 2 po qam and Unknown 0000 1 tab qpm Calcium +D3 + K / Active Chewtabs 1-2 tabs po Unknown 0000 daily Allergy Drops / Active three Unknown 0000 sunlingually every day Cetirizine HCL / Active Tablets 10mg 1 by mouth Unknown 0000 every day Epipen 2-Moose / Active Solution 0.3mg/0.3 use as Unknown 0000 Auto-Inje ML directed ct Vitamin C / Active Tablets 500mg 1 po bid Unknown 0000 Sudafed / Active Tablets 25mg 1 tab as Unknown Congestion 0000 needed for congestion Multivitamin / Active Tablets Mini 1 by mouth Unknown Women 0000 Tablet bid Biotin / Active Capsules 2500mcg 2 tabs po Unknown 0000 daily Vitamin B-12 / Active Tablets 5000mg 1 by mouth Unknown 0000 Sub every day Clobetasol / Active Foam 0.05% apply once Unknown Propionate 0000 daily to scalp Probiotic / Active Capsules once a day Unknown 0000 Doxycycline / Active Capsules 50mg 1 by mouth Unknown Hyclate 0000 twice a day Cefaly US Use as Carol 2013 - directed Cowdery, 12/22/ M.D. 2016 Kit 3 Cefaly Carol Electrodes 2013 - Cowdery, M.D. 2016 Alendronate 03/09/ Hx Tablets 35mg 30tab 1 tablet once 733.01 Oral Sodium 2014 - s weekly. take Endo, 08/08/ on empty M.D. 2013 stomach with 8 oz water. do not eat or lie down for 30 minutes after taking. Alendronate 02/15/ Hx Tablets 70mg 4tabs 1 by mouth 733.01 Oral Sodium 2013 - weekly Endo, 03/09/ M.D. 2013 Verapamil HCL 01/29/ Hx Caps ER 120mg 30cap take 1 by Nelsy ER 2013 - 24HR s mouth every Gnadt, [employer] 09/10/ night at 2014 bedtime Verapamil HCL 05/05/ Hx Caps ER 120mg 30cap take 1 po qhs Carol SR 2012 - 24HR s Cowdery, 01/29/ M.D. 2013 Propranolol HCL 03/28/ Hx Tablets 10mg take 1 po qhs Carol 2013 - Cowdery, 03/28/ M.D. 2013 Propranolol HCL 01/04/ Hx Caps ER 60mg 30cap take 1 po qhs Carol ER 2012 - 24HR s Cowdery, 03/28/ M.D. 2013 Gabapentin 05/12/ Hx Capsules 300mg 30cap 1 po qhs Carol 2012 - s Cowdery, 08/04/ M.D. 2012 Amerge / Hx 2.5 1 tab po prn Carol 0000 - Cowdery, 01/04/ M.D. 2012 Benadryl /00/ Hx Capsules 25mg 30cap 1 po at hs Unknown 0000 - s 2014 Multivitamin - /00/ Hx Capsules 1 cap po Unknown Women 0000 - daily 2015 Probiotic /00/ Hx Capsules 1 cap po bid Unknown Pearls 0000 - 2016 Vitamin C // Hx Chewtabs 500mg 1 po qd Unknown - 2015 Doxycycline /00/ Hx Tablets 1 tab by Unknown 0000 - mouth once a day, for 2013 sinus infection Vit B 12 / Hx 5000mcg sl daily Unknown - 2015 Diazepam 00/ Hx Tablets 5mg 2tabs 1/2 -1 tab Unknown 0000 - prn 2015 Hydrocodone-Edwin / Hx Tablets 5-325mg 60tab 1 by mouth Unknown taminophen 0000 - s every 4-6 12/17/ hours prn. 2013 Fish Oil / Hx Capsules 500mg 1 by mouth Unknown Burp-Less 0000 - every day 2015 Cinnamon /00/ Hx Capsules 500mg 1 cap po bid Unknown - 2014 Brooks / Hx Unknown Suplement - 2014 Loratadine / Hx Tablets 10mg as needed Unknown - 2015 Medications Administered in Office Medication Date Status Form Strength Qnty SIG Indications Ordering Provider Injection 07/31 Administered Injection Acrol Onabotulinumtoxin /2014 Marissa A, 1 Unit M.D. Injection 04/25 Administered Injection Nelsy Onabotulinumtoxin /2014 LUIS ENRIQUE Chopra A, 1 Unit Injection 01/23 Administered Injection Nelsy Onabotulinumtoxin /2014 LUIS ENRIQUE Chopra A, 1 Unit Injection 10/22 Administered Injection Carol Onabotulinumtoxin /2014 Cowderamor A, 1 Unit M.D. Injection 07/23 Administered Injection Carol Onabotulinumtoxin /2013 Cowderamor A, 1 Unit M.D. Injection 04/18 Administered Injection Carol Onabotulinumtoxin /2013 Marissa A, 1 Unit M.D. Injection 10/23 Administered Injection Carol Onabotulinumtoxin /2013 Cowdery, A, 1 Unit M.D. Injection 10/23 Administered Injection Carol Onabotulinumtoxin /2013 Cowdery, A, 1 Unit M.D. Injection 07/27 Administered Injection Carol Onabotulinumtoxin /2012 Cowdery, A, 1 Unit M.D. Depomedrol 20MG 07/06 Administered Injection Carol /2012 Carlito Ann Vital Signs Date Vital Result Comment 11/26/2017 Height 64.5 inches 5'4.50" Weight 138.25 lb Heart Rate 78 /min BP Systolic Sitting 110 mmHg Lue reg cuff BP Diastolic Sitting 80 mmHg Lue reg cuff Respiratory Rate 14 /min O2 % BldC Oximetry 96 % On Ra BMI (Body Mass Index) 23.4 kg/m2 10/01/2017 Height 64.5 inches 5'4.50" Weight 142.12 lb with shoes Heart Rate 88 /min BP Systolic Sitting 110 mmHg Lue reg cuff BP Diastolic Sitting 82 mmHg Lue reg cuff Respiratory Rate 16 /min O2 % BldC Oximetry 98 % On Ra BMI (Body Mass Index) 24.0 kg/m2 09/17/2017 Height 64.5 inches 5'4.50" Weight 141.25 lb with shoes Heart Rate 92 /min BP Systolic Sitting 104 mmHg Lue reg cuff BP Diastolic Sitting 74 mmHg Lue reg cuff Respiratory Rate 16 /min O2 % BldC Oximetry 99 % On Ra BMI (Body Mass Index) 23.9 kg/m2 Neck Circumference in inches 13 05/12/2017 Height 64.5 inches 5'4.50" Weight 136.38 lb Heart Rate 62 /min BP Systolic Sitting 118 mmHg BP Diastolic Sitting 70 mmHg Respiratory Rate 16 /min BMI (Body Mass Index) 23.0 kg/m2 12/23/2016 Height 64.5 inches 5'4.50" Weight 133.00 lb Heart Rate 96 /min BP Systolic Sitting 96 mmHg BP Diastolic Sitting 66 mmHg Respiratory Rate 14 /min BMI (Body Mass Index) 22.5 kg/m2 04/22/2016 Height 64.5 inches 5'4.50" Weight 132.38 lb Heart Rate 68 /min BP Systolic Sitting 110 mmHg BP Diastolic Sitting 60 mmHg Respiratory Rate 17 /min BMI (Body Mass Index) 22.4 kg/m2 12/13/2015 Height 64.5 inches 5'4.50" Weight 132.00 lb Heart Rate 88 /min BP Systolic Sitting 122 mmHg BP Diastolic Sitting 58 mmHg Respiratory Rate 16 /min BMI (Body Mass Index) 22.3 kg/m2 09/02/2015 Height 64.5 inches 5'4.50" Weight 135.00 lb Heart Rate 80 /min BP Systolic Sitting 114 mmHg BP Diastolic Sitting 70 mmHg Respiratory Rate 16 /min BMI (Body Mass Index) 22.8 kg/m2 07/31/2015 Height 64.5 inches 5'4.50" Weight 132.00 lb Heart Rate 76 /min BP Systolic Sitting 124 mmHg BP Diastolic Sitting 66 mmHg Respiratory Rate 16 /min BMI (Body Mass Index) 22.3 kg/m2 04/25/2015 Heart Rate 72 /min BP Systolic Sitting 108 mmHg BP Diastolic Sitting 80 mmHg Respiratory Rate 20 /min 02/27/2015 Height 64.5 inches 5'4.50" Weight 134.00 lb Heart Rate 76 /min BP Systolic Sitting 126 mmHg BP Diastolic Sitting 72 mmHg Respiratory Rate 16 /min BMI (Body Mass Index) 22.6 kg/m2 01/23/2015 Height 64.5 inches 5'4.50" Heart Rate 80 /min BP Systolic Sitting 108 mmHg BP Diastolic Sitting 62 mmHg Respiratory Rate 16 /min 10/22/2014 Height 64.5 inches 5'4.50" Weight 135.00 lb Heart Rate 90 /min BP Systolic Sitting 102 mmHg BP Diastolic Sitting 70 mmHg Respiratory Rate 17 /min BMI (Body Mass Index) 22.8 kg/m2 09/10/2014 Height 64.5 inches 5'4.50" Weight 137.00 lb Heart Rate 88 /min BP Systolic Sitting 112 mmHg BP Diastolic Sitting 68 mmHg Respiratory Rate 16 /min BMI (Body Mass Index) 23.2 kg/m2 07/23/2014 Height 64.5 inches 5'4.50" Weight 137.25 lb Heart Rate 80 /min BP Systolic Sitting 106 mmHg BP Diastolic Sitting 66 mmHg Respiratory Rate 16 /min BMI (Body Mass Index) 23.2 kg/m2 04/18/2014 Height 64.5 inches 5'4.50" Weight 134.00 lb Heart Rate 92 /min BP Systolic Sitting 120 mmHg BP Diastolic Sitting 76 mmHg Respiratory Rate 16 /min BMI (Body Mass Index) 22.6 kg/m2 03/08/2014 Height 64 inches 5'4" Weight 134.00 lb Heart Rate 67 /min BP Systolic Sitting 120 mmHg BP Diastolic Sitting 60 mmHg Respiratory Rate 16 /min BMI (Body Mass Index) 23.0 kg/m2 02/15/2014 Height 64 inches 5'4" Weight 135.25 lb Heart Rate 80 /min BP Systolic Sitting 108 mmHg BP Diastolic Sitting 64 mmHg BMI (Body Mass Index) 23.2 kg/m2 12/27/2013 Height 64 inches 5'4" Weight 134.25 lb Heart Rate 81 /min BP Systolic Sitting 110 mmHg BP Diastolic Sitting 72 mmHg BMI (Body Mass Index) 23.0 kg/m2 12/04/2013 Height 64 inches 5'4" Weight 130.00 lb Heart Rate 67 /min BP Systolic Sitting 110 mmHg BP Diastolic Sitting 60 mmHg Respiratory Rate 16 /min BMI (Body Mass Index) 22.3 kg/m2 10/23/2013 Heart Rate 67 /min BP Systolic Sitting 110 mmHg BP Diastolic Sitting 60 mmHg Respiratory Rate 16 /min 09/14/2013 Heart Rate 72 /min BP Systolic Sitting 120 mmHg BP Diastolic Sitting 70 mmHg Respiratory Rate 16 /min 07/27/2013 Heart Rate 84 /min BP Systolic Sitting 118 mmHg BP Diastolic Sitting 70 mmHg Respiratory Rate 16 /min 07/06/2013 Heart Rate 84 /min BP Systolic Sitting 112 mmHg BP Diastolic Sitting 72 mmHg Respiratory Rate 18 /min 01/04/2013 Heart Rate 80 /min BP Systolic Sitting 116 mmHg BP Diastolic Sitting 68 mmHg Respiratory Rate 12 /min 08/04/2012 Heart Rate 78 /min BP Systolic 118 mmHg BP Diastolic 78 mmHg Respiratory Rate 14 /min Results Test Date Test Result H/L Range Note CBC Auto Diff 01/01/2017 White Blood Count [...] 0-2 Nucleated Red Blood Cells % 0 Vitamin D, 25 Hydroxy 12/30/2013 25-Hydroxy Vitamin D2 <4.0 ng/mL 1 25-Hydroxy Vitamin D3 62 ng/mL 1 25-Hydroxy Vitamin D Total 62 ng/mL 1, 2 Phosphorus 24HR Urine 12/30/2013 Urine Random Phosphorus 28.1 mg/dL 1 Urine Phosporus/24HR 477.7 mg/24Hr 400-1300 1 Hla B27 12/30/2013 Hla B27 Negative 1, 3 Hla B27 Interp See Comment 1, 4 Comp Metabolic Panel 12/30/2013 Sodium 142 mmol/L 133-145 1 Potassium 4.4 mmol/L 3.7-5.6 1 Chloride 106 mmol/L 101-111 1 Co2 Carbon Dioxide 24 mmol/L 22-32 1 Anion Gap 12 mmol/L High 2-11 1 Glucose 137 mg/dL High 70-100 1 Blood Urea Nitrogen 15 mg/dL 6-24 1 Creatinine 0.89 mg/dL 0.51-0.95 1 BUN/Creatinine Ratio 16.9 8-20 1 Calcium 8.9 mg/dL 8.6-10.3 1 Total Protein 6.0 g/dL Low 6.4-8.9 1 Albumin 4.1 g/dL 3.2-5.2 1 Globulin 1.9 g/dL Low 2-4 1 Albumin/Globulin Ratio 2.2 1-3 1 Total Bilirubin 0.50 mg/dL 0.2-1.0 1 Alkaline Phosphatase 73 U/L 34-104 1 Alt 28 U/L 7-52 1 Ast 21 U/L 13-39 1 Egfr Non- 65.6 >60 1 Egfr 84.4 >60 1, 5 Protein Electrophoresis 12/30/2013 Total Protein(Pep) 6.2 g/dL 6.3 - 7.9 1 Albumin 3.2 g/dL 3.4-4.7 1 Alpha-1 Globulin 0.2 g/dL 0.1-0.3 1 Alpha-2 Globulin 1.1 g/dL 0.6-1.0 1 Beta Globulin 0.8 g/dL 0.7-1.2 1 Gamma Globulin 0.9 g/dL 0.6-1.6 1 Albumin/Globulin Ratio 1.09 1 Impression See Comment 1, 6 Laboratory test finding 12/30/2013 Erythrocyte Sed Rate 9 mm/Hr 0-30 1 C Reactive Protein < 1.00 mg/L < 5.00 1, 7 TSH (Thyroid Stimulating Horm) 1.92 IU/mL 0.34-5.60 1, 8 Free T4 0.93 ng/mL 0.61-1.12 1, 9 Cortisol 6.57 g/dL 1, 10 Calcium 24HR Urine 12/30/2013 Urine Random Calcium 17.6 mg/dL 1 Urine Calcium/24HR 299.2 mg/24Hr 50-400 1 Urine Collection Time 24 1 Urine Total Volume 1700 mL 1 1 Collected from 12/29/13 0745AM through 12/30/13 0745AM 2 Interpretation: 51-80 ng/mL (increased risk of hypercalciuria) -- REFERENCE VALUE -- 25-HYDROXY D TOTAL (D2+D3) Optimum levels in the healthy population are 20-50, patients with bone disease may benefit from higher levels within this range. Test Performed by: [place] [address] Roof Assembler: Brandon Betancur III, M.D. 3 -- REFERENCE VALUE -- Not Applicable 4 RESULT: HLA-B27 antigen was not detected. Method: Flow Cytometry Performing Laboratory CLIA# [id number] Test Performed by: [place] [address] Roof Assembler: Brandon Betancur III, M.D. 5 Because ethnic data is not always readily [...] 15-29 5 Kidney failure <15 (or dialysis) 6 RESULT: No apparent monoclonal protein on serum electrophoresis. Test Performed by: [place] [id number] Roof Assembler: Brandon Betancur III, M.D. 7 Acute inflammation: >10.00 8 Collected from 12/29/13 0745AM through 12/30/13 0745AM 9 Collected from 12/29/13 0745AM through 12/30/13 0745AM 10 AM 8.7-22.4 PM <10 Procedures Date CPT Code Description Status 09/27/2017 58165 Sleep Study Unattended,HRT Rate,Oxygen Sat,Resp Completed Effort/Airflow 09/20/2017 28546 Allergy Test, Patch Or Application Completed 07/31/2015 24507 Chemodenervation Of Muscles Innervated By Facial Completed Nerves, Bilat 04/25/2015 48730 Chemodenervation Of Muscles Innervated By Facial Completed Nerves, Bilat 01/23/2015 56046 Chemodenervation Of Muscles Innervated By Facial Completed Nerves, Bilat 10/22/2014 93908 Chemodenervation Of Muscles Innervated By Facial Completed Nerves, Bilat 07/23/2014 87123 Chemodenervation Of Muscles Innervated By Facial Completed Nerves, Bilat 04/18/2014 64093 Chemodenervation Of Muscles Innervated By Facial Completed Nerves, Bilat 10/23/2013 40799 Chemodenervation Of Muscles Innervated By Facial Completed Nerves, Bilat 07/27/2013 96481 Chemodenervation Of Muscles Innervated By Facial Completed Nerves, Bilat 07/06/2013 50135 Injection For Nerve Block, Greater Occipital Nerve Completed Encounters Type Date Location Provider CPT E/M Dx Office Visit 10/22/2017 [facility] [place] [address] L66.8 9:00a Office Visit 10/01/2017 [facility] [place] [address] G47.33 11:45a [facility] Office Visit 09/23/2017 [facility] [place] [address] L23.9 9:00a L66.8 Office Visit 09/22/2017 8:30a [facility] [place] [address] L23.9 Office Visit 09/17/2017 10:00a [facility] [place] [address] R06.83 [facility] R40.0 R51 Office Visit 08/13/2017 10:50a [facility] [place] [address] L30.8 L65.9 Office Visit 05/12/2017 8:30a [facility] Carol Ann M.D. 99481 G43.919 [facility] G50.0 R20.2 Office Visit 12/23/2016 8:30a [facility] Carol Ann M.D. 29229 G43.919 [facility] G50.0 R53.83 Office Visit 04/22/2016 8:30a [facility] Carol Ann M.D. 83996 G43.919 [facility] G50.0 Office Visit 12/13/2015 9:30a [facility] Carol Ann 29000 G43.919 Carlito G50.0 Office Visit 09/02/2015 8:30a [facility] Carol Ann M.D. 05907 G43.919 [facility] Office Visit 02/27/2015 3:45p [facility] Carol Ann M.D. 60734 346.91 [facility] 350.1 Office Visit 09/10/2014 8:30a [facility] [place] [address] 346.91 [facility] Office Visit 03/08/2014 1:00p [facility] Carol Ann 66530 346.91 [facility] M.Willow 350.1 Office Visit 02/15/2014 10:40a [facility] Oral Vargas 45663 733.01 [facility] M.DBang 009.1 V58.69 Office Visit 12/27/2013 3:00p [facility]ology Services Oral Vargas 85673 733.01 [facility] M.DBang 346.91 009.1 Office Visit 12/04/2013 12:00p [facility] Carol Ann M.D. 14091 346.91 [facility] Office Visit 09/14/2013 12:45p [facility] Carol Ann M.D. 71840 346.91 [facility] Office Visit 03/22/2013 4:00p [facility] Carol Ann M.D. 47310 346.91 [facility] Office Visit 01/04/2013 1:45p [facility] Carol Ann M.D. 74672 346.91 [facility] Office Visit 08/04/2012 3:30p [facility] Carol Ann M.D. 49029 346.91 [facility] Office Visit 05/12/2012 3:30p [facility] Carol Ann M.D. 42642 346.91 [facility] Office Visit 04/13/2012 3:30p [facility] Carol Ann M.D. 18266 346.91 [facility] 350.1 Plan of Care Future Appointment(s):03/11/2018 10:30 am - Karely Addison DNP, FARNAZ, REMI- at [facility]02/18/2018 2:45 pm - Carol Ann M.D. at [facility]11/26/2017 - Karely Addison DNP, RN, REMI- BCG47.33 Obstructive sleep apnea (adult) (pediatric)Comments:Sleep Apnea - HST AHI 7.2/hour, nadia oxygen 90% On CPAP auto 4-6 cm H2O AHI 1.9/hour ( normal)Follow up:3 monthsRecommendations:Continue PAP device, Benefitting and compliant with treatment. Trial CPAP auto 4-5 cm. Trial Dreamwear FFM- contact Gisele at [facility]. If you have any sleepiness while driving you MUST avoid operating a vehicle or machinery. If you have difficulty with your equipment, or need to replace yourmask or hoses, please contact your homecare agency. A weight change of 20 pounds or more may have aneffect on your equipment ; if you are experiencing problems please call for an appointment. If you have any further questions, please call the [facility] at [phone].
[2017-12-20 12:05] VITALS: BP 121/47
--- NOTE | 2017-12-20 12:08 | UC ---
FLU HPI - HPI Summary HPI Summary: Pt presents with feeling fatigued, body aches, and intermittent feelings of feverish for the last 5 days. She is concerned that she has the flu as she was recently around someone who was diagnosed. She has not taken her temperature. Has been taking tylenol with great relief of her symptoms. Denies chills, SOB, chest pain, abdominal pain, n/v/d/c. - History of Current Complaint Chief Complaint: UCGeneralIllness Stated Complaint: FEVER, TIRED. Hx Obtained From: Patient Hx Last Menstrual Period: Hyste. Onset/Duration: Gradual Onset Severity Currently: None Pain Intensity: 0 - Allergy/Home Medications Allergies/Adverse Reactions: Allergies Allergy/AdvReac Type Severity Reaction Status Date / Time buckwheat Allergy Severe Anaphylatic Verified 12/20/17 12:16 Shock spinach Allergy Severe Anaphylatic Verified 12/20/17 12:16 Shock Penicillins Allergy Intermediate Rash Verified 12/20/17 12:16 acyclovir Allergy GI Upset Verified 12/20/17 12:16 epinephrine Allergy See Comment Verified 12/20/17 12:16 carbamazepine AdvReac See Comment Verified 12/20/17 12:16 oxycodone AdvReac Nausea Verified 12/20/17 12:16 Quinolones AdvReac See Comment Verified 12/20/17 12:16 molds and smuts Allergy Severe Anaphylatic Uncoded 12/20/17 12:16 Shock WALNUTS Allergy Severe Anaphylatic Uncoded 10/16/16 09:24 Shock CATS Allergy Mild CONGESTION, Uncoded 09/30/16 15:18 ITCHING DUST Allergy Mild Congestion Uncoded 09/30/16 15:18 Home Medications: Home Medications Acetaminophen [Acetaminophen Extra Strength] 1,000 mg PO Q12HR PRN 12/20/17 [ History Confirmed 12/20/17] Biotin 2,500 mcg PO DAILY 12/20/17 [History Confirmed 12/20/17] Clobetasol Propionate/Emoll [Clobetasol Emollnt 0.05% Foam] 100 gm TP 12/20/17 [ History] Doxycycline TAB(NF) [Doxycycline (NF)] 50 mg PO BID 12/20/17 [History Confirmed 12/20/17] PMH/Surg Hx/FS Hx/Imm Hx Previously Healthy: Yes Cardiovascular History: Hypertension Other History Of: Negative For: HIV, Hepatitis B, Hepatitis C, Anticoagulant Therapy - Surgical History Surgical History: Yes Surgery Procedure, Year, and Place: HYSTERECTOMY 2007, SEPTOPLASTY & FESS 2006, MYRINGOTOMY X2 AGE 14 & 15, TONSILLECTOMY AGE 7, D&C, HYSTEROSCOPY, UTERINE ABLATION PRIOR TO HYSTERECTOMY. 1985 CERVICAL CONIZATION. MYOMECTOMY -1993. TUBAL LIGATION - Family History Known Family History: Positive: Cardiac Disease, Diabetes Negative: Hypertension - Social History Occupation: Employed Full-time Lives: With Family Alcohol Use: Daily Alcohol Amount: 1 GLASS WINE/DAY Substance Use Type: None Smoking Status (MU): Never Smoked Tobacco Have You Smoked in the Last Year: No - Immunization History Most Recent Tetanus Shot: 06/22/2012 Review of Systems Constitutional: Fatigue, Other - Body aches Skin: Negative Eyes: Negative ENT: Negative Respiratory: Negative Cardiovascular: Negative Gastrointestinal: Negative Neurovascular: Negative Neurological: Negative Psychological: Negative All Other Systems Reviewed And Are Negative: Yes Physical Exam - Summary Physical Exam Summary: GENERAL: NAD. WDWN. No pain distress. SKIN: No rashes, sores, lesions, or open wounds. HEENT: Head: AT/NC Eyes: EOM intact. Conjunctiva clear without inflammation or discharge. Ears: Hearing grossly normal. TMs intact, no bulging, erythema, or edema. Nose: Nasal mucosa pink and moist. NTTP maxillary and frontal sinus. Throat: Posterior oropharynx without exudates, erythema, or tonsillar enlargement. Uvula midline. NECK: Supple. Nontender. No lymphadenopathy. CHEST: CTAB. No r/r/w. No accessory muscle use. Breathing comfortably and in no distress. CV: RRR. Without m/r/g. Pulses intact. Brisk cap refill. NEURO: Alert. CN II-XII grossly intact. PSYCH: Age appropriate behavior. Triage Information Reviewed: Yes Vital Signs: Initial Vital Signs Temp 97.7 F 12/20/17 11:53 Pulse 91 12/20/17 11:53 Resp 18 12/20/17 11:53 BP 121/47 12/20/17 11:53 Pulse Ox 98 12/20/17 11:53 Flu Course/Dx - Course Course Of Treatment: POC flu swab negative. Suspect viral illness. Advised to continue supportive care. - Differential Dx/Diagnosis Provider Diagnoses: Viral syndrome Discharge - Sign-Out/Discharge Documenting (check all that apply): Discharge/Admit/Transfer - Discharge Plan Condition: Stable Disposition: HOME Patient Education Materials: Viral Syndrome (ED) Referrals: Imer Ovalle DO [Primary Care Provider] - Additional Instructions: If you develop a fever, shortness of breath, chest pain, new or worsening symptoms - please call your PCP or go to the ED. - Billing Disposition and Condition Condition: STABLE Disposition: HOME
== END 2017-12-20 12:46 | disposition home or self-care (01) ==
LOC: UCEAST 11:48
DX: B34.9 Viral infection, unspecified (principal); I10 Essential (primary) hypertension; Z88.5 Allergy status to narcotic agent; Z88.0 Allergy status to penicillin; Z88.8 Allergy status to other drugs, medicaments and biological substances
CPT/HCPCS: 87502; 99211; G0463